=== PATIENT | female | born 1965 | race Caucasian/White ===

== ENCOUNTER 2016-09-10 12:36 | Inpatient (IN) ==
--- NOTE | 2016-09-10 14:27 | History & Physical Report ---
<Josefina Crespo Mitchell - Last Filed: 09/10/16 15:00> History of Present Illness Date: 09/10/16 Chief complaint: Abdominal pain HPI: Nely Ortega is a healthy 51 y/o lady who is directly admitted to [facility] [place], [place] from Dr. Varghese's office for surgical consultation and further evaluation of diverticulitis with perforation. She has chronic back pain, and developed a flare up of pain 1 week ago. She saw the chiropracter on Tuesday, which didn't provide relief. She saw her PCP on Tuesday, who ordered a back x-ray which was negative. By this time, her pain radiated towards her LLQ, and she felt like it was less likely to be musculoskeletal in origin. It was the worst on night, feeling intense pressure and like it was going to explode. She had a follow up appt with Dr. Varghese this morning, who ordered labs and a CT scan. Labs were benign with a nml WBC (9.0) and neg UA but CT showed free intraperitoneal air and a bowel perforation secondary to acute diverticulitis. (CMP: Na 142, BUN 18, Cr 0.91, Glu 111) Last night she had night sweats and chills; no n/v. The only time she had diarrhea was after oral contrast. She's had a poor appetite all week. She had a headache last night but that is better now. She feels weak, fatigued. No dizziness/lightheadedness. No respiratory issues. Otherwise very healthy. She had a colonoscopy in May by Dr. Victoria. Review of Systems All systems: reviewed and no additional remarkable complaints except as stated - Constitutional Constitutional: Present: chills, fatigue, fever(s), headache(s) - EENMT Eyes: Absent: change in vision Mouth/Throat: Absent: sore throat - Cardiovascular Cardiovascular: Absent: chest pain, palpitations Vascular: Absent: pedal edema - Respiratory Respiratory: Absent: cough, dyspnea - Gastrointestinal Gastrointestinal: Present: as per HPI - Musculoskeletal Musculoskeletal: Absent: arthralgias - Integumentary/Breasts Integumentary: Absent: lesions, wounds - Neurological Neurological: Absent: abnormal gait - Psychiatric Psychiatric: Present: anxiety - Hematologic/Lymphatic Hematologic/Lymphatic: Absent: easy bleeding, easy bruising - Allergic/Immunologic Allergic/Immunologic: Absent: seasonal rhinorrhea PFSH Sacroilitis CHRISTIANO, mild Surgical History: Colonoscopy (routine) 05/2016. Partial hysterectomy 2013 ( done d/t anemia) Family History: PGM of [place] at age 66 Thyroid issues on maternal side of the family Both parents alive and well. 2 sisters - healthy. 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 Medications Home Medications Medication Instructions Recorded Confirmed Type Multi-Vitamin Plain [Theragran] 1 tab PO DAILY 09/10/16 09/10/16 History [place]-3/Dha/Epa/Fish Oil [Fish Oil 1,000 mg PO DAILY 09/10/16 09/10/16 History 1,000 mg Softgel] Allergies Allergy/AdvReac Type Severity Reaction Status Date / Time No Known Allergies Allergy Verified 09/10/16 13:54 Exam Vital Signs: Temp Pulse Resp BP Pulse Ox 98.3 F 69 16 140/86 H 98 09/10/16 13:36 09/10/16 13:36 09/10/16 13:36 09/10/16 13:36 09/10/16 13:36 Height: 1.65 m Weight: 49.2 kg Body Mass Index: 18.0 - Constitutional Present: no acute distress, well nourished, well developed, thin - Routine HEENT Exam ENT: Present: mucous membranes dry, oropharynx clear - Routine Neck Exam Present: supple. Absent: lymphadenopathy - Routine Respiratory Exam Present: CTA bilaterally - Routine Cardiovascular Exam Present: S1, S2 - Routine Abdominal Exam Present: normoactive bowel sounds, tenderness (LLQ) - Routine Extremities Exam Present: no edema, pulses intact, normal capillary refill - Routine Skin Exam Present: intact, dry, warm - Routine Neurological Exam Present: alert, oriented X3 - Routine Psychiatric Exam Present: normal affect, normal thought process Assessment and Plan (1) Diverticulitis of colon with perforation Current visit: Yes Status: Acute DVT Prophylaxis: SCD's Resuscitation Status: Full Code Assessment and Plan: Admit under hospitalist service. Consult surgeon - discussed with Dr. Bowser. Start Invanz daily. Outside CT has been taken to radiology dept to be uploaded. Diet: NPO. IVF: NS at 100 mL/hr. Zofran/Dilaudid PRN. Discussed with Dr. Fernandes. Sepsis Assessment - Evaluation Sepsis screening result: No Definite Risk - Focused Exam Vital Signs Temp Pulse Resp BP Pulse Ox 09/10/16 13:36 98.3 F 69 16 140/86 H 98 Hospital Course Summary Disclaimer: The visit summary below is not to be considered part of the above Progress Note. <FernandesLaura laughlin - Last Filed: 09/10/16 18:19> History of Present Illness Date: 09/10/16 [facility] Patient Stated Medical History Sleep Apnea No Gastrointestinal Bleeding Yes Other GI Yes: rupture diverticulim Exam Vital Signs: Temp Pulse Resp BP Pulse Ox 98.3 F 89 16 140/86 H 98 09/10/16 13:36 09/10/16 17:41 09/10/16 13:36 09/10/16 13:36 09/10/16 13:36 Height: 1.65 m Weight: 49.2 kg Assessment and Plan (1) Diverticulitis of colon with perforation Current visit: Yes Status: Acute Assessment and Plan: 09/10/2016-I reviewed this chart, the patient history, and the SMOKING TOBACCO PACKER HAND's/PA's documented findings as above. We discussed and formulated the assessment and plan as above with the additions below.-Dr. Fernandes I saw the patient this evening in preop accompanied by her and son. The patient was transferred from Dr. Varghese's office with abdominal pain and free air seen on CT. Dr. Bowser was consulted and is recommending surgical evaluation and treatment this evening. The patient is in agreement. She states that she has been previously healthy. She began having back pain one week ago and last night pain began in the abdomen. She had hot and cold sweats last night. She denies any other complaints other than some weight loss over the past 1 week. She denies any history of lung disease, heart disease, diabetes or cancer. She denies any headaches or chest pains. She denies any shortness of breath. She denies any fevers, chills or sweats other than her symptoms last evening. She had a colonoscopy several months ago and she states 2 polyps were removed, one of which was precancerous. She has no history of bleeding problems. She underwent hysterectomy a couple of years ago without any difficulties with anesthesia or bleeding. On exam today the patient is well-developed and thin. She is alert and oriented and in mild distress secondary to pain. HEENT reveals sclerae to be anicteric and pupils are equal. Oropharynx is moist. Neck is supple. Chest is clear to auscultation. Cardiovascular reveals a regular rate and rhythm without murmur. Abdomen is soft and tender with hyperactive bowel sounds. Extremities are free of clubbing cyanosis or edema. Skin is warm and dry and without rashes. I agree with plans for surgical treatment for bowel perforation. Continue IV fluids and antibiotics. The patient will likely go to CCU for close observation postoperatively. Dr. Bowser's help is greatly appreciated. Sepsis Assessment - Focused Exam Vital Signs Temp Pulse Resp BP Pulse Ox 09/10/16 17:41 89 09/10/16 13:36 98.3 F 69 16 140/86 H 98 Hospital Course Summary Disclaimer: The visit summary below is not to be considered part of the above Progress Note.
[2016-09-10] MEDS ORDERED: HYDROMORPHONE 2 MG/ML INJECTION IVP PRN (14:33)
[2016-09-10] MEDS ORDERED: NS 1,000 ML IV SCH (14:45)
[2016-09-10] MEDS: SALINE FLUSH 10ml SYRINGE IV PRN (14:59)
[2016-09-10] MEDS: ERTAPENEM 1 G in NS 100 ML IV SCH (15:53)
[2016-09-10] MEDS ORDERED: ROCURONIUM 50 MG/5 ML INJECTION IVP ONE (16:13)
[2016-09-10] MEDS ORDERED: LIDOCAINE 2% (100mg/5mL) PF 5ml vl ONE (16:13)
[2016-09-10] MEDS ORDERED: SUCCINYLCHOLINE 20mg/mL 10mL INJECTION ONE (16:13)
[2016-09-10] MEDS ORDERED: PROPOFOL 20 ML ONE ×2 (16:13→18:19)
--- NOTE | 2016-09-10 16:53 | General Surgery Consult Note ---
Consult date: 09/10/16 Attending Physician: Balbina Santos MD Reason for consult: other (Free air in the abdomen, perforated colon) PFSH Sacroliliitis Surgical History: Colonoscopy (routine) 05/2016, Dr. Beasley. Partial hysterectomy 2013 (done d/t anemia) Family History: both parents alive and well PGM of [place] age 66 - Social History Smoking status: Never smoker Substance use type: does not use Alcohol intake frequency: a few times a month Medications Home Medications Medication Instructions Recorded Confirmed Type Multi-Vitamin Plain [Theragran] 1 tab PO DAILY 09/10/16 09/10/16 History [place]-3/Dha/Epa/Fish Oil [Fish Oil 1,000 mg PO DAILY 09/10/16 09/10/16 History 1,000 mg Softgel] Allergies Allergy/AdvReac Type Severity Reaction Status Date / Time No Known Allergies Allergy Verified 09/10/16 13:54 Review of Systems 10-point ROS: negative except for HPI and the following: - General General: Present: chills, night sweats - Gastrointestinal Gastrointestinal: Present: diarrhea - Musculoskeletal Musculoskeletal: Present: back pain - Neurological Neurological: Present: other (headaches) - Psychiatric Psychiatric: Present: anxiety - Vital Signs Vital Signs: Last Vital Signs Temp 98.3 F 09/10/16 13:36 Pulse 69 09/10/16 13:36 Resp 16 09/10/16 13:36 BP 140/86 H 09/10/16 13:36 Pulse Ox 98 09/10/16 13:36 (1) Diverticulitis of colon with perforation Status: Acute Current visit: Yes Hospital Course Summary Disclaimer: The visit summary below is not to be considered part of the above Progress Note. Sepsis Assessment - Evaluation Sepsis screening result: No Definite Risk - Focused Exam Vital Signs Temp Pulse Resp BP Pulse Ox 09/10/16 13:36 98.3 F 69 16 140/86 H 98 Respiratory exam: Present: CTA bilaterally Cardiovascular exam: Present: S1, S2
--- NOTE | 2016-09-10 16:55 | Anesthesia Preoperative Report ---
Anesthesia Preoperative Record - Date and Time Date: 09/10/16 Preoperative Diagnosis: Free air in the Abdomen Proposed Procedure: Exploratory Laparotomy NPO Since Date: 09/10/16 NPO Since Time: 16:53 Allergies/Adverse Reactions: Allergies Allergy/AdvReac Type Severity Reaction Status Date / Time No Known Allergies Allergy Verified 09/10/16 13:54 - Vital Signs Vital Signs: Temp Pulse Resp BP Pulse Ox 98.3 F 69 16 140/86 H 98 09/10/16 13:36 09/10/16 13:36 09/10/16 13:36 09/10/16 13:36 09/10/16 13:36 Height and Weight: Height 1.65 m Weight 49.2 kg Body Mass Index 18.0 - Medications Inpatient Medications: Current Medications Heparin Sodium (Porcine) (Heparin Sq) 5,000 units SQ O ONE Stop: 09/10/16 17:01 Hydromorphone HCl (Dilaudid) 0.2 - 0.5 mg IVP Q3H PRN PRN Reason: Pain Last Admin: 09/10/16 15:44 Dose: 0.5 mg Sodium Chloride (Normal Saline) 1,000 mls @ 100 mls/hr IV .Q10H ALESSANDRA Last Infusion: 09/10/16 16:23 Dose: 100 mls/hr Ertapenem 1 g/ Sodium Chloride 100 mls @ 200 mls/hr IV DAILY ALESSANDRA Last Infusion: 09/10/16 16:23 Dose: Infused Ondansetron HCl (Zofran) 4 mg IVP Q6H PRN PRN Reason: Nausea &/or vomiting Sodium Chloride (Iv Flush) 10 - 80 ml IV PRN PRN PRN Reason: Flushing Last Admin: 09/10/16 14:59 Dose: 10 ml Home Medications: Home Medications Medication Instructions Recorded Confirmed Type Multi-Vitamin Plain [Theragran] 1 tab PO DAILY 09/10/16 09/10/16 History [place]-3/Dha/Epa/Fish Oil [Fish Oil 1,000 mg PO DAILY 09/10/16 09/10/16 History 1,000 mg Softgel] Is Patient on Beta Sarah?: No Beta Sarah: No - Surgical History Reproductive Surgery/Treatment: Reports: Hysterectomy - Social History Smoking Status: Never smoker Hx Chewing Tobacco Use: No Second Hand Exposure: No Time spent discussing smoking cessation with patient: 3 to 10 minutes Substance Use Type: does not use Alcohol Intake Frequency: a few times a month - Pertinent Findings EKG Rhythm: Normal Sinus Rhythm - Physical Exam Respiratory Exam: Present: lungs clear Cardiovascular Exam: Present: regular rate and rhythm - Airway Assessment Mallampati Score: II TMD: 3 Fingerbreadths Neck Extension: good Overall Assessment: no airway concerns - ASA ASA Score: 2, E - Plan Anesthesia: General Inhalation Gases - Discussion Discussion: Discussed risks/options/alternatives of anesthesia and questions answered. Patient consents. Nursing pain assessment noted. Attestation Statement: Prior to the delivery of any anesthetic medication, I examined the patient, developed the plan, obtained the patient's consent and discussed the risk and benefits of the procedure with the patient/guardian.
[2016-09-10] MEDS ORDERED: HEPARIN SUB-Q 5,000 UNITS/0.5 ML INJECTION SQ ONE (17:00)
--- NOTE | 2016-09-10 17:57 | Anesthesia Preoperative Report ---
Anesthesia Preoperative Record - Date and Time Date: 09/10/16 Preoperative Diagnosis: abdominal pain ruptured colon Proposed Procedure: exploratory laparotomy NPO Since Date: 09/09/16 NPO Since Time: 22:00 Allergies/Adverse Reactions: Allergies Allergy/AdvReac Type Severity Reaction Status Date / Time No Known Allergies Allergy Verified 09/10/16 13:54 - Vital Signs Vital Signs: Temp Pulse Resp BP Pulse Ox 98.3 F 89 16 140/86 H 98 09/10/16 13:36 09/10/16 17:41 09/10/16 13:36 09/10/16 13:36 09/10/16 13:36 Height and Weight: Height 1.65 m Weight 49.2 kg Body Mass Index 18.0 - Medications Inpatient Medications: Current Medications Hydromorphone HCl (Dilaudid) 0.2 - 0.5 mg IVP Q3H PRN PRN Reason: Pain Last Admin: 09/10/16 15:44 Dose: 0.5 mg Sodium Chloride (Normal Saline) 1,000 mls @ 100 mls/hr IV .Q10H ALESSANDRA Last Infusion: 09/10/16 17:16 Dose: 0 mls/hr Ertapenem 1 g/ Sodium Chloride 100 mls @ 200 mls/hr IV DAILY ALESSANDRA Last Infusion: 09/10/16 16:23 Dose: Infused Ondansetron HCl (Zofran) 4 mg IVP Q6H PRN PRN Reason: Nausea &/or vomiting Sodium Chloride (Iv Flush) 10 - 80 ml IV PRN PRN PRN Reason: Flushing Last Admin: 09/10/16 14:59 Dose: 10 ml Home Medications: Home Medications Medication Instructions Recorded Confirmed Type Multi-Vitamin Plain [Theragran] 1 tab PO DAILY 09/10/16 09/10/16 History [place]-3/Dha/Epa/Fish Oil [Fish Oil 1,000 mg PO DAILY 09/10/16 09/10/16 History 1,000 mg Softgel] Is Patient on Beta Sarah?: No Beta Sarah: No - Medical History Gastrointestional: Reports: Gastrointestinal Bleeding, Other (rupture diverticulim) - Surgical History Reproductive Surgery/Treatment: Reports: Hysterectomy - Social History Smoking Status: Never smoker Substance Use Type: does not use Alcohol Intake Frequency: a few times a month - Pertinent Findings EKG Rhythm: Normal Sinus Rhythm - Physical Exam Respiratory Exam: Present: lungs clear Cardiovascular Exam: Present: regular rate and rhythm, no murmur - Airway Assessment Mallampati Score: I TMD: 3 Fingerbreadths Neck Extension: good Teeth: chipped teeth/crowns Overall Assessment: no airway concerns - ASA ASA Score: 2, E - Plan Anesthesia: General Inhalation Gases - Discussion Discussion: Discussed risks/options/alternatives of anesthesia and questions answered. Patient consents. Nursing pain assessment noted. Present for Discussion: spouse, family member Attestation Statement: Prior to the delivery of any anesthetic medication, I examined the patient, developed the plan, obtained the patient's consent and discussed the risk and benefits of the procedure with the patient/guardian.
[2016-09-10] MEDS: LR 1,000 ML IV SCH ×4 (18:04→20:27)
[2016-09-10] MEDS ORDERED: FentaNYL 250 MCG/5 ML INJECTION ONE (18:07)
--- NOTE | 2016-09-10 18:09 | Consultation ---
DATE OF CONSULTATION 09/10/2016 FINDINGS Mrs. Ortega is a 51-year-old female whom I was asked to see today as a result of her history and physical findings of abdominal pain in conjunction with a probable colonic perforation noted on CT scan. Upon questioning Mrs. Ortega, she informs me that over the last two to three years she has been experiencing intermittent bouts of pain. She states that most of the pain seems to occur initially within her lower back. Patient states that she had a similar pain begin about a week ago. Patient states that initially she had gone to the chiropractor and had her "back manipulated." The pain continued to become more severe in nature. She did begin to notice the pain was now present within her left lower quadrant and her lower abdomen. Patient states that she presented to her primary care physician in [place], [place] and subsequently underwent further evaluation including a CT scan. CT scan revealed evidence for perforation. Patient subsequently has been sent to our facility for further care. Patient states the pain is constant in nature. Pain is made worse upon palpation. Pain is made worse with movement. She states she has had a component of some fever and chills in association with the pain. Describes the pain as quite severe in nature. PAST MEDICAL HISTORY, PAST SURGICAL HISTORY, MEDICATIONS, ALLERGIES, SOCIAL HISTORY, FAMILY HISTORY, REVIEW OF SYSTEMS Performed by my nurse practitioner, Sky Morales APRN PHYSICAL EXAMINATION GENERAL: Mrs. Ortega is a 51-year-old female who does appear to be uncomfortable but does not appear to be in acute distress. VITAL SIGNS: Temperature 98.3, pulse 69, respirations 16, blood pressure 140/86 , SAO2 98% on room air. HEENT: Normocephalic. Pupils are equally round and react to light and accommodation. CHEST: Clear to auscultation bilaterally. HEART: Regular rate and rhythm. Normal S1 and S2 without gallops, murmurs or clicks. ABDOMEN: Surprisingly, the patient did not have geovany peritoneal signs. I was able to palpate within her right lower quadrant and right upper quadrant and to some extent within her left upper quadrant without resulting in severe pain. Patient did grimace, however, during the process of the examination but stated that she was not in severe pain. However, palpation with the left lower quadrant did elicit severe pain to the patient. Patient was also found be exquisitely tender within the suprapubic region. She did have a component of both voluntary and involuntary guarding in these locations. I did not appreciate any evidence for hepatomegaly or other abnormal masses. EXTREMITIES: Without clubbing, cyanosis, or edema. NEURO: Cranial nerves II-XII grossly intact. Patient is without focal motor or sensory deficits. LABORATORY/RADIOGRAPHIC EVALUATION I did review her lab work from [place], [place]. Her white count was not markedly elevated at around 9000. I did review the actual CT scan personally as well as with our radiologist. CT scan was more impressive than her physical findings and she was found to have fair amount of free air up by the liver around the spleen and stomach. She was found to have a large area of air outside of the rectum and colon within the presacral region. There did appear to be some fluid associated with this area. One could see some inflammatory changes within the para sigmoid region. Additionally, one could see several diverticula present. ASSESSMENT 51-year-old female with probable perforated sigmoid diverticulitis. PLAN Exploratory laparotomy, sigmoid resection, possible coloproctostomy, possible creation of end colostomy with Ari's pouch, possible coloproctostomy in conjunction with temporary diverting loop ileostomy. I informed the patient that her physical findings are not nearly as impressive as her radiographic findings. I did inform the patient, however, that I did feel that she was fairly stoic and that her pain was more severe than she was "letting on." I informed the patient that I felt we had a few options available to us. One option is nonoperative and to place her on IV antibiotics and follow her carefully with serial abdominal examinations. The other option, of course, is to proceed with surgical intervention. I am a little reluctant to proceed with nonoperative intervention given her CT scan findings of fairly significant free air throughout the peritoneal cavity as well as a fair amount of air surrounding the perirectal region within the presacral space in conjunction with some fluid suggesting a developing abscess. I informed the patient that I felt that there was a risk that she could develop a pelvic sepsis as a result of the extent of her perforation noted on CT scan. I informed the patient that my recommendation would be to proceed with surgical intervention given her CT scan findings as discussed above. I did discuss in detail with the patient and her what surgical intervention would entail, and the potential for creation of a colostomy or loop ileostomy. I discussed potential risks which included but were not inclusive of bleeding and infection. The patient understood and agreed to proceed with surgical intervention at this time. JAJA
[2016-09-10] MEDS ORDERED: SEVOFLURANE 250ml LIQUID IH ONE (18:20)
[2016-09-10] MEDS ORDERED: ONDANSETRON 4 MG/2 ML INJECTION ONE (19:40)
[2016-09-10] MEDS ORDERED: SUGAMMADEX 200mg/2ml INJECTION IVP ONE (19:40)
[2016-09-10] MEDS ORDERED: HYDROMORPHONE 2 MG/ML INJECTION ONE (19:42)
--- NOTE | 2016-09-10 20:14 | General Surgery Procedure Note ---
Date of Procedure: 09/10/16 Surgeon: [employer] Supervisor: Sky Morales APRN Postoperative Diagnosis: Ruptured diverticulitis Procedure: Exploratory laparotomy with sigmoid resection and primary anastomosis Estimated Blood Loss: See Anesthesia Record.
[2016-09-10] MEDS: HYDROMORPHONE 2 MG/ML INJECTION IVP PRN ×2 (20:19→20:32)
[2016-09-10] MEDS ORDERED: KETOROLAC 15 MG/ML INJECTION IVP PRN (22:07)
[2016-09-10] MEDS ORDERED: MORPHINE SULFATE 4 MG SYRINGE IVP PRN (22:07)
[2016-09-10] MEDS: HYDROMORPHONE PCA 30mg/30ml VIAL IV PRN (22:28)
[2016-09-10] MEDS: D5-1/2NS with KCL 20mEq 1,000 ML IV SCH (23:31)
[2016-09-11] MEDS: D5-1/2NS with KCL 20mEq 1,000 ML IV SCH ×2 (08:27→19:17)
[2016-09-11] MEDS: ERTAPENEM 1 G in NS 100 ML IV SCH (08:27)
[2016-09-11] MEDS: ONDANSETRON 4 MG/2 ML INJECTION IVP PRN ×2 (08:29→19:16)
--- NOTE | 2016-09-11 09:07 | Progress Note ---
Subjective: Patient states she feels groggy and has midabdominal pain. She was also noted to have weakness in the left leg when the nurse got her up out of bed and into a chair this morning. She has some chronic intermittent low back pain and started having low back pain a week ago. She saw her chiropractor on Tuesday. She denies any pain in either leg. She has mild numbness in the medial left thigh and left calf. She has some low back pain but it is not severe, however she is on IV narcotics. The patient underwent general anesthesia last night for perforated bowel. Surgery reportedly went well. She has some mild nausea. She denies shortness of breath. She has not had any flatus yet. She denies any chest pain or headache. She denies any visual difficulties. She has an NG tube in place. Objective Vital signs: Temp Pulse Resp BP Pulse Ox 98.8 F 65 32 H 152/64 H 99 09/11/16 04:00 09/11/16 04:00 09/11/16 06:00 09/11/16 04:00 09/11/16 04:00 Weight: 51.1 kg Comments: The patient is on room air. She is afebrile. Blood pressure is 152/64 on last recording. O2 sat 99% on room air. Heart rate in the 50s to 60s. GEN-mildly drowsy, sitting up in a chair, no acute distress, oriented, she is a good historian HEENT-sclera anicteric, pupils are pinpoint, extraocular movements are intact, oropharynx is moist NECK-supple CV-regular rate and rhythm without murmur CHEST-clear to auscultation bilaterally ABD-soft, tender throughout, hypoactive bowel sounds -Vargas in place with mildly dark urine EXT-no edema. The patient has equal posterior tab and dorsalis pedis pulses. She has good/equal capillary refill in both feet. NEURO-cranial nerves II through XII are grossly intact, motor strength of the upper extremities is equal and normal. The patient has significant decreased strength with flexion at the hip on the left and is not able to extend the left leg at the knee. Reflexes absent at the left knee. Reflexes normal at the left ankle. Motor strength and reflexes are normal in the right leg. The patient has decreased but not absent sensation in the left medial thigh and left medial calf. SKIN-warm and dry and without rashes - Constitutional Present: no acute distress, well nourished, well developed, thin Results - Labs CBC & Chem 7: 09/11/16 08:26 09/11/16 08:26 Assessment and Plan (1) Diverticulitis of colon with perforation Current visit: Yes Status: Acute Assessment and Plan: 09/11/2016 Impression/plan Diverticulitis with colonic perforation-postop day #1-continue antibiotics, postop care per Dr. Bowser Ileus-continue to monitor, NG tube Mild leukocytosis-no signs of sepsis, continue ertapenem Borderline hypotension-monitor closely, may need fluid resuscitation Intermittent chronic low back pain-sleep diagnosed with sacroiliitis New onset weakness left leg with decreased flexion at the hip and absent extension at the left knee. Absent reflex at the left knee. Decreased sensation left inner thigh and left calf. Discussed with Dr. Bowser and nurse dining server. The patient did have general anesthesia. She was in the lithotomy position during surgery which could possibly affect the nurse. I also called and spoke with neurologist Dr. Boone Ewing. I discussed with him the patient's surgery last night and new onset of symptoms found today. He was concerned for possible retroperitoneal hematoma and recommended a CT abdomen and pelvis. If CT abdomen and pelvis did not show a cause for her neurologic symptoms he recommended an MRI of the lumbar spine. I discussed these recommendations with Dr. Bowser and he was in agreement. He recommended extending the CT down to the mid thigh to look at the iliac and femoral vessels. I did speak with the radiology department and they will make sure the CT extends to the mid thigh. Prior to discussing with consultants, I did talk with the patient's daughter who is a nurse, on the phone. I did also try to call the patient's and give him an update but there was no answer. I did leave a message requesting that he call back. Greater than 45 minutes of critical care time spent seeing and evaluating the patient, talking with consultants and determining care plan Sepsis Assessment - Evaluation Sepsis screening result: No Definite Risk - Focused Exam Vital Signs Temp Pulse Resp BP Pulse Ox 09/11/16 06:00 32 H 09/11/16 04:00 98.8 F 65 19 152/64 H 99 09/11/16 03:17 20 100 09/11/16 02:00 24 09/11/16 00:00 98.3 F 74 24 108/56 100 09/10/16 22:00 22 Respiratory exam: Present: CTA bilaterally Cardiovascular exam: Present: S1, S2 Capillary refill: < 2-3 Seconds Hospital Course Summary Disclaimer: The visit summary below is not to be considered part of the above Progress Note. 09/10/2016-I reviewed this chart, the patient history, and the EQUIPMENT HIRE MANAGER's/PA's documented findings as above. We discussed and formulated the assessment and plan as above with the additions below.-Dr. Fernandes I saw the patient this evening in preop accompanied by her and son. The patient was transferred from Dr. Varghese's office with abdominal pain and free air seen on CT. Dr. Bowser was consulted and is recommending surgical evaluation and treatment this evening. The patient is in agreement. She states that she has been previously healthy. She began having back pain one week ago and last night pain began in the abdomen. She had hot and cold sweats last night. She denies any other complaints other than some weight loss over the past 1 week. She denies any history of lung disease, heart disease, diabetes or cancer. She denies any headaches or chest pains. She denies any shortness of breath. She denies any fevers, chills or sweats other than her symptoms last evening. She had a colonoscopy several months ago and she states 2 polyps were removed, one of which was precancerous. She has no history of bleeding problems. She underwent hysterectomy a couple of years ago without any difficulties with anesthesia or bleeding. On exam today the patient is well-developed and thin. She is alert and oriented and in mild distress secondary to pain. HEENT reveals sclerae to be anicteric and pupils are equal. Oropharynx is moist. Neck is supple. Chest is clear to auscultation. Cardiovascular reveals a regular rate and rhythm without murmur. Abdomen is soft and tender with hyperactive bowel sounds. Extremities are free of clubbing cyanosis or edema. Skin is warm and dry and without rashes. I agree with plans for surgical treatment for bowel perforation. Continue IV fluids and antibiotics. The patient will likely go to CCU for close observation postoperatively. Dr. Bowser's help is greatly appreciated.
[2016-09-11] MEDS ORDERED: SALINE FLUSH 10ml SYRINGE ONE ×2 (09:53→13:17)
[2016-09-11] MEDS ORDERED: NS 100 ML ONE (09:53)
[2016-09-11] MEDS ORDERED: IOHEXOL 300mg/ml 75ml INJECTION ONE (09:53)
--- NOTE | 2016-09-11 09:54 | Anesthesia Postoperative Note ---
- Date and Time Date: 09/11/16 Time: 09:47 - Status Patient Participated in Evaluation: Patient Participated in Person Vital Signs: Temp Pulse Resp BP Pulse Ox 98.6 F 54 L 14 88/52 99 09/11/16 09:12 09/11/16 09:12 09/11/16 09:12 09/11/16 08:00 09/11/16 09:12 Respiratory Function: Airway Patent Cardiovascular Function: Regular Pulse EKG Rhythm: Normal Sinus Rhythm Mental Status: Alert and Oriented Pain Intensity: 3 Hydration: IV Infusing Complications During Recover: None Apparent Post Anesthesia Care Notes: This AM patient complains of weak left lower leg strength. Physical exam - patient shows limited left lower leg extension and requires assistance during ambulation. Dr. Fernandes also present and speaking with Dr. Nelson on the phone. No complications related to anesthesia were observed. Pain rated at 3/ 10. Plans this AM for CT of abdomen according to Dr Fernandes. - Follow-Up Instructions Instructions: Per Surgeon
[2016-09-11] MEDS: ENOXAPARIN 40 MG/0.4 ML INJECTION SQ SCH (10:32)
[2016-09-11] MEDS: PANTOPRAZOLE 40 MG INJECTION IVP SCH (11:02)
[2016-09-11] MEDS ORDERED: GADOBUTROL 10mMol/10ml INJECTION IVP ONE (13:17)
[2016-09-11] MEDS ORDERED: KETOROLAC 15 MG/ML INJECTION IVP ONE (16:10)
[2016-09-12] MEDS: D5-1/2NS with KCL 20mEq 1,000 ML IV SCH ×5 (00:50→22:45)
[2016-09-12] MEDS: PANTOPRAZOLE 40 MG INJECTION IVP SCH (08:59)
[2016-09-12] MEDS: SALINE FLUSH 10ml SYRINGE IV PRN (09:00)
[2016-09-12] MEDS: ERTAPENEM 1 G in NS 100 ML IV SCH (09:42)
--- NOTE | 2016-09-12 10:26 | CT Scan Report ---
Indication: left leg weakness, surgery for ruptured divertic yesterday PROCEDURE: CT abdomen pelvis w con: Encounter: Initial Comparison: Outside CT abdomen and pelvis dated September 10, 2016 Technique: Axial CT images were performed through the abdomen and pelvis after the administration of intravenous contrast. Coronal and sagittal two-dimensional reformats. Automated Exposure Control and Iterative Reconstruction dose reducing techniques were utilized. Contrast: Omnipaque 300 74 mL Findings: The lung bases show trace effusions. Interval change in configuration of free intraperitoneal air. New periportal edema, likely related to aggressive intravenous hydration. Right hepatic cysts. Vicarious excretion of contrast by the gallbladder. Nasogastric tube extending into the pylorus of the stomach. The spleen is unremarkable. The pancreas is grossly normal. The adrenal glands and kidneys are within normal limits. No abdominal or pelvic adenopathy. Bladder is decompressed with a Vargas catheter. There is contrast material to the level of the rectum. There is presacral induration with fluid and gas. The prior large focal. Colonic collection of fluid and gas near the sigmoid is no longer seen. There is free air tracking around well left paracolic gutter. Small bowel is nondilated. Postoperative change in the sigmoid colon. No obvious free intraperitoneal or retroperitoneal hemorrhage appreciated. Impression: Interval surgery with change in configuration of free intraperitoneal air. No evidence of acute obstruction or contrast extravasation from the colon. No obvious free intraperitoneal or retroperitoneal hemorrhage. There is a preliminary report by [facility]. .
--- NOTE | 2016-09-12 10:27 | Magnetic Resonance Report ---
Indication: left leg weakness and numbness post laparotomy yesterday PROCEDURE: MR lumbar spine wo con: Encounter: Initial Comparison: None Technique: Multiplanar multisequence MR imaging of the lumbar spine was performed without contrast. Findings: No cord compression. Mild scoliosis. No acute fracture identified. No gross central canal or neural foraminal stenosis. Small disk extrusion at L4-L5. Mild disk bulging at L2-L3 and L3-L4. Motion artifact limits the quality of the exam. Impression: No acute fracture. No obvious cord or nerve root compression. There is a preliminary report by [facility]. .
--- NOTE | 2016-09-12 11:21 | Progress Note ---
Subjective: The patient is seen in her room this morning sitting up in a chair. She and her nurse both state that she was able to walk a little bit better today than yesterday. She has a little bit more strength with extension at the knee on the left leg today than she did yesterday. She has a little bit of improved strength with flexion at the left hip compared to yesterday. She denies any chest pains or palpitations. She denies any shortness of breath. She denies lightheadedness or nausea. She tolerated some juice and Jell-O today. Abdominal pain is controlled. She has had good urine output overnight. Objective Vital signs: Temp Pulse Resp BP Pulse Ox 98.9 F 61 9 L 122/61 94 09/12/16 08:00 09/12/16 08:00 09/12/16 10:00 09/12/16 08:00 09/12/16 08:00 Weight: 52.8 kg Comments: Patient is afebrile and vital signs are stable. She is on room air. GEN-alert, oriented, no acute distress HEENT-sclera anicteric, oropharynx is moist NECK-supple CV-regular rate and rhythm without murmur CHEST-clear to auscultation bilaterally ABD-soft, mild tenderness, hypoactive bowel sounds -Vargas in place with normal colored urine EXT-no edema NEURO-the patient still has absent reflex at the knee on the left. She continues to have decreased sensation in the left leg mostly in the medial thigh and medial calf area. Strength is a little better with extension at the left knee and flexion at the left hip compared to yesterday. She still has good strength with flexion and extension at the feet/ankles. SKIN-warm and dry and without rashes - Constitutional Present: no acute distress, well nourished, well developed, thin Results - Labs CBC & Chem 7: 09/12/16 04:10 09/12/16 04:10 - Imaging and Cardiology CT scan - abdomen Status: image reviewed by me Additional comments: CT abdomen with and without IV contrast Findings: The lung bases show trace effusions. Interval change in configuration of free intraperitoneal air. New periportal edema, likely related to aggressive intravenous hydration. Right hepatic cysts. Vicarious excretion of contrast by the gallbladder. Nasogastric tube extending into the pylorus of the stomach. The spleen is unremarkable. The pancreas is grossly normal. The adrenal glands and kidneys are within normal limits. No abdominal or pelvic adenopathy. Bladder is decompressed with a Vargas catheter. There is contrast material to the level of the rectum. There is presacral induration with fluid and gas. The prior large focal. Colonic collection of fluid and gas near the sigmoid is no longer seen. There is free air tracking around well left paracolic gutter. Small bowel is nondilated. Postoperative change in the sigmoid colon. No obvious free intraperitoneal or retroperitoneal hemorrhage appreciated. Impression: Interval surgery with change in configuration of free intraperitoneal air. No evidence of acute obstruction or contrast extravasation from the colon. No obvious free intraperitoneal or retroperitoneal hemorrhage. MRI lumbar spine Findings: No cord compression. Mild scoliosis. No acute fracture identified. No gross central canal or neural foraminal stenosis. Small disk extrusion at L4-L5. Mild disk bulging at L2-L3 and L3-L4. Motion artifact limits the quality of the exam. Impression: No acute fracture. No obvious cord or nerve root compression. Assessment and Plan (1) Diverticulitis of colon with perforation Current visit: Yes Status: Acute Assessment and Plan: 09/12/2016 Impression/plan Diverticulitis with colonic perforation-postop day #2-continue antibiotics, postop care per Dr. Bowser. Agree with transfer to floor today Mild leukocytosis-resolved -no signs of sepsis, continue ertapenem Borderline hypotension-resolved Mild anemia Intermittent chronic low back pain-sleep diagnosed with sacroiliitis New onset weakness left leg with decreased flexion at the hip and absent extension at the left knee. Absent reflex at the left knee. 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 Will likely need neurology follow-up and physical therapy. CT abdomen with contrast and MRI lumbar spine as above did not show any cause for her leg weakness and numbness. Agree with transfer to [facility], [facility]. Sepsis Assessment - Evaluation Sepsis screening result: No Definite Risk - Focused Exam Vital Signs Temp Pulse Resp BP Pulse Ox 09/12/16 10:00 9 L 09/12/16 08:00 98.9 F 61 18 122/61 94 09/12/16 04:00 98.7 F 65 16 107/63 99 09/12/16 00:00 99.1 F 62 16 105/69 95 Respiratory exam: Present: CTA bilaterally Cardiovascular exam: Present: S1, S2 Capillary refill: < 2-3 Seconds Hospital Course Summary Disclaimer: The visit summary below is not to be considered part of the above Progress Note. 09/11/2016 Impression/plan Diverticulitis with colonic perforation-postop day #1-continue antibiotics, postop care per Dr. Bowser Ileus-continue to monitor, NG tube Mild leukocytosis-no signs of sepsis, continue ertapenem Borderline hypotension-monitor closely, may need fluid resuscitation Intermittent chronic low back pain-sleep diagnosed with sacroiliitis New onset weakness left leg with decreased flexion at the hip and absent extension at the left knee. Absent reflex at the left knee. Decreased sensation left inner thigh and left calf. Discussed with Dr. Bowser and nurse extension associate. The patient did have general anesthesia. She was in the lithotomy position during surgery which could possibly affect the nurse. I also called and spoke with neurologist Dr. Boone Ewing. I discussed with him the patient's surgery last night and new onset of symptoms found today. He was concerned for possible retroperitoneal hematoma and recommended a CT abdomen and pelvis. If CT abdomen and pelvis did not show a cause for her neurologic symptoms he recommended an MRI of the lumbar spine. I discussed these recommendations with Dr. Bowser and he was in agreement. He recommended extending the CT down to the mid thigh to look at the iliac and femoral vessels. I did speak with the radiology department and they will make sure the CT extends to the mid thigh. Prior to discussing with consultants, I did talk with the patient's daughter who is a nurse, on the phone. I did also try to call the patient's and give him an update but there was no answer. I did leave a message requesting that he call back. Greater than 45 minutes of critical care time spent seeing and evaluating the patient, talking with consultants and determining care plan
--- NOTE | 2016-09-12 13:41 | Progress Note ---
DATE OF SERVICE 09/12/2016 FINDINGS Mrs. Ortega is in good spirits today. States that her leg is stronger today. She is not having as much weakness. Denies any element of nausea or vomiting. PHYSICAL EXAM VITAL SIGNS: Afebrile, normotensive. Please refer to EMR. CHEST: Clear to auscultation bilaterally. HEART: Regular rate and rhythm. Normal S1 and S2 without gallops, murmurs or clicks. ABDOMEN: Abdomen soft. Minimal incisional tenderness. No evidence for guarding or rebound. EXTREMITIES: Attention was focused to her left lower extremity. The patient did have increased motor strength to her left lower extremity today. She was able to lift her leg off the bed as well as slowly extend her knee which she was not able to perform yesterday. LABORATORY/RADIOGRAPHIC EVALUATION The patient had a CBC today that was unremarkable. Hemoglobin is 10.9. White count is 6.2. CMP obtained and found to be without marked abnormalities. ASSESSMENT 51-year-old female status post exploratory laparotomy with sigmoid resection and coloproctostomy secondary to probable ruptured diverticulitis. Patient currently doing well. PLAN Transfer to floor. DC Vargas. Increase to full liquid diet. Decrease IV fluids to 100 mL. Overall pleased with the patient's progress. [facility]
--- NOTE | 2016-09-12 16:59 | Operative Note ---
DATE OF SERVICE 09/10/2016 SURGEON Mynor Bowser MD ANTIQUE REFINISHER Sky Morales APRN PREOPERATIVE DIAGNOSIS Probable perforated sigmoid diverticulitis. POSTOPERATIVE DIAGNOSIS Probable perforated sigmoid diverticulosis. PROCEDURE Exploratory laparotomy, sigmoid resection, coloproctostomy. ANESTHESIA General endotracheal. EBL/FLUIDS Please see chart. BRIEF HISTORY/INDICATIONS Nely is a 51-year-old female who has had about a one-week history of severe back and lower abdominal pain. Pain has progressively become more severe in nature. The patient presented to her primary care physician who earlier today had obtained a CT scan of her abdomen and pelvis. CT scan did reveal evidence for perforated viscus. The patient was subsequently sent to our facility for further care. Upon examination the patient was found to be exquisitely tender within her suprapubic region and the left lower quadrant. The patient was fairly stoic but it did appear that she was in a considerable amount of discomfort. CT scan was obtained that did reveal a fair amount of free air surrounding the liver, stomach, spleen. Additionally, there was a large " pocket of air" which contained some fluid within the presacral region. As a result of her physical findings and her radiographic findings it was recommended that she undergo surgical intervention. For completeness please refer to notes included in the patient's chart. FINDINGS Upon laparotomy fortunately the patient was not found to have gross fecal peritonitis. She was found to have what appeared to be an abscess cavity contained within the mesentery to the distal sigmoid colon/upper rectum region. This abscess cavity was not opened and was resected en bloc with the sigmoid colon and upper rectum. The colon at this location was significantly thickened and inflamed. There was a phlegmonous-like reaction involving the distal sigmoid colon. Small bowel was run from ligament of Treitz to terminal ileum. No visible or palpable abnormalities were noted. Liver edge was smooth without nodularities with the exception there was one nodule along the lateral aspect of the right lobe of the liver. Upon visualization there was a bluish-like area upon Tabatha's capsule corresponding with this palpable abnormality. This likely represented an underlying cystic structure or perhaps hemangioma. It did not appear suspicious in nature from a neoplastic process. Gallbladder was somewhat distended but was without palpable stones and without visible abnormalities to suggest acute cholecystitis. Stomach was without palpable abnormalities. Colon was palpated throughout and was normal with the exception as stated above. As stated above, a sigmoid resection and coloproctostomy were completed without incident. NARRATIVE OF PROCEDURE After informed consent was obtained the patient was brought to the operative suite and placed on the table in supine fashion. The abdomen was then prepped and draped in sterile fashion. Formal timeout was then completed. A standard midline incision was then made from just above the pubic symphysis up to and into the epigastric region. Underlying subcutaneous tissues, fascia, and peritoneum was opened to the extent of the incision. The abdominal cavity was explored with findings as noted above. Next, attention was directed towards performing sigmoidectomy and coloproctostomy. Patient was hemodynamically stable. There was no evidence for gross contamination within the peritoneal cavity. There was indeed a perforation but it did appear to be contained within the mesentery. As a result of the above indications, I elected to proceed with primary anastomosis. First, a point involving the mid sigmoid colon was ascertained. This area was perhaps 10-15 cm proximal to the area of marked induration involving the distal sigmoid colon and upper rectum. Small window was then created within the mesentery at this location. DARA 75 stapler was placed across the sigmoid colon at this location and fired. Next, the mesentery was then sequentially divided down towards the sacral promontory. White line of Toldt was then incised along the left pericolic gutter. The sigmoid colon was then reflected medially. Left ureter was identified and preserved in its entirety as the colon was being reflected medially. The patient was quite thin and one could also see the right ureter beneath the peritoneum as it coursed up and overlying the iliac vessels. Next, the presacral space was then entered just below the sacral promontory and the sigmoid colon and the mesorectum at this point in time was then dissected within the presacral space. Mesorectum out laterally was then incised. Next, dissection was carried down about 4-5 cm below this phlegmonous process involving the upper rectum and sigmoid colon. A point involving the mid rectum was then obtained. Small window was then created within the mesorectum adjacent to the rectum at this location. The remaining mesorectum was then sequentially divided between right angle clamps and ligated with a combination of 3-0 and 0-Vicryl ties. Contour stapler was then placed across the mid to distal rectum and fired. Next, the rectum, mesorectum and mesocolon to the distal sigmoid colon was then resected and passed off the table as a surgical specimen. As stated above, this phlegmonous process with an associated apparent abscess was present within the midportion of the specimen. Attention was directed towards completion of the primary anastomosis. The proximal staple line could be brought forth and laid adjacent to the rectum without any tension. Allis clamps were then placed upon the proximal staple line. Proximal staple line was then transected with curved House scissors. Colon did bleed following transection, indicative of adequate blood supply. Three Allis clamps were then placed upon the transected end of the colon in a triangulated fashion. A 28-mm sizer was able to be advanced in the colon without difficulty. A 29-mm EEA stapler was then obtained. Anvil portion of stapler was then placed in the transected end of the colon. A pursestring suture was then placed circumferentially around the transected end of the colon and tied securely, resulting in nice imbrication of the colonic mucosa against the anvil portion. Next, I had my medical staff assistant perform anal dilatation and then advance the EEA stapler through the anal verge and advance the stapler adjacent to the staple line involving the distal/mid rectum. Trocar portion of the stapler was then advanced out farrell under direct visualization until it had pierced the rectum just above the staple line. Anvil portion of the stapler was attached to the trocar portion of the stapler and tightened to the appropriate tension and fired. Stapler was then loosened and removed. Two complete doughnuts were present within the stapler. Saline was then placed within the pelvis until it covered the anastomosis. I then had my medical staff assistant insert a colonoscope into the anus and insufflate the rectum and sigmoid colon until was fairly taut with air. I did grasp the remaining sigmoid colon just about 15 cm above the level of the anastomosis. With the colon and rectum fairly taut with air, no bubbles were seen coming forth through the saline within the pelvis. Air was then suctioned and the colonoscope was then removed. Attention was directed towards closure. Prior areas of dissection were inspected and found to be hemostatic in nature. Left ureter again was identified and remained to be intact in its entirety. Attention was then directed towards closure. New gowns, gloves and instruments were obtained. Fascia was then closed in a running fashion with #1 PDS. Skin was then closed with madina. Patient is in the process of awakening from her anesthetic and will be sent back to recovery room once deemed in stable condition. Additionally, it should be noted that Sky Morales APRN, was present throughout the entire case and played a pivotal role in providing assistance and exposure during the course of the procedure. JAJA
[2016-09-13] MEDS: HYDROCODONE/APAP 5mg/325mg TABLET PO PRN (01:42)
--- NOTE | 2016-09-13 07:00 | Operative Note ---
FINDINGS Mrs. Lopez's, this morning, surprisingly, main complaint was in regards to weakness involving her left lower extremity. She did have some incisional tenderness as one would expect. VITALS: Afebrile. Normotensive. Please refer to MRLitzy Patient slightly hypotensive earlier this morning. CHEST: Clear to auscultation bilaterally. HEART: Regular rate and rhythm. Normal S1 and S2 without gallops, murmurs or clicks. ABDOMEN: Palpation of the abdomen reveals it to be soft and nontender. I do not appreciate any evidence for hepatosplenomegaly or abnormal masses. EXTREMITIES/NEURO: Attention was focused to the area of her concern involving the left lower extremity. Patient has a very strong palpable femoral pulse. It does appear from a sensory standpoint that she has good sensation involving her thigh region. She does have some decreased sensation involving the medial aspect of her calf. She does have good plantarflexion and dorsiflexion of her left foot. The patient does, however, have marked weakness of extension at the knee. LABORATORY/RADIOGRAPH EVALUATION The patient had a CBC this morning and her white count was 11.1. Hemoglobin is overall stable at 11.7. BMP obtained and found be without marked abnormalities. ASSESSMENT 51-year-old female status post exploratory laparotomy with sigmoid resection and coloproctostomy secondary to probable ruptured sigmoid diverticulitis. PLAN I am somewhat uncertain in regards to the underlying etiology for her weakness involving her left lower extremity. This is concerning. We did make sure that when she was placed in lithotomy position that her legs were in the appropriate position and well padded. Additionally, when I placed the Codman retractor, I made sure that the blades that were utilized were fairly short and not pressing on her iliac vessels. I appreciate hospitalists' help in further evaluation in regards to workup of the etiology for her left lower extremity weakness. From a surgical standpoint, I believe the patient is doing quite well. I did see the CT scan report from earlier today. I do believe that the description of the findings are consistent with her surgical history, i.e. free air and changes noted within the presacral space. Will go ahead and discontinue NG today. Will begin the patient on some clear liquids. Continue to follow the patient closely. It is my intuition that her neurologic deficit involving the left lower extremity will improve over the next several days. Will continue to follow closely and proceed with further evaluation. JAJA
[2016-09-13] MEDS: ENOXAPARIN 40 MG/0.4 ML INJECTION SQ SCH (08:53)
[2016-09-13] MEDS: D5-1/2NS with KCL 20mEq 1,000 ML IV SCH ×2 (08:53→19:57)
[2016-09-13] MEDS: ERTAPENEM 1 G in NS 100 ML IV SCH (08:55)
[2016-09-13] MEDS: PANTOPRAZOLE 40 MG INJECTION IVP SCH (08:55)
--- NOTE | 2016-09-13 11:58 | Consultation ---
DATE OF CONSULTATION 09/13/[address] Fernandes CHIEF COMPLAINT Left leg weakness. HISTORY OF PRESENT ILLNESS The patient is a 51-year-old female with no significant past medical history. The patient was recently admitted to [facility] for a bowel surgery due to perforated bowel problem. The patient has been complaining of left leg weakness. This has affected her ability to flex her hip and extend her leg mainly. She also complains of numbness and tingling sensation on the medial aspect of her thigh and leg. Her symptoms started after the surgery. She has had some mild improvement so far. The patient had a CT of the abdomen and pelvis to rule out a retroperitoneal bleed. This was negative. She also had an MRI of the lumbar spine that showed no significant abnormalities. The patient denies having any significant pain in addition to the weakness. She has had no more other neurological problem on the right lower extremity or upper extremities bilaterally. PHYSICAL EXAMINATION The patient was awake, alert, oriented x 3. Pupils were round, reactive and equal. Extraocular muscles were intact. Visual huffman were full. Speech was normal. Motor examination in the upper extremities was 5/5 bilaterally. In the right lower extremity it was 5/5. In the left lower extremity it was 4-/5 for hip flexion, 3-/5 for knee extension, 4+ to 5-/5 for ankle dorsiflexion and ankle plantar flexion, 4+/5 for knee flexion. Her deep tendon reflexes were 2+ except at the left patellar reflex. Sensory examination was affected for light touch and pinprick in the medial aspect of the thigh and leg on the left. Coordination was normal for [id number]. The patient's gait is affected by her left lower extremity weakness. ASSESSMENT Acute-onset left femoral neuropathy. This can be associated with nerve entrapment during surgery. Other consideration includes a left upper trunk lumbosacral plexopathy which is less likely in this clinical setting. PLAN 1. Continue physical and occupational therapy and consider rehabilitation admission. 2. Consider starting patient on steroid including prednisone 40 mg p.o. q.d. if the patient's symptoms of weakness progress or if she has no significant improvement with physical therapy. 3. Consider repeating the CT of the abdomen if patient complains of any lower back pain or worse weakness in the leg. JAJA
--- NOTE | 2016-09-13 14:44 | Progress Note ---
Subjective: The patient was seen today in her room accompanied by her daughter. She states that she's feeling better than yesterday. Abdominal pain is improving and appetite is improving. She has some mild low back pain. She denies any pain in her legs. She states her strength in her left leg is getting a little bit better every day. She states she feels stronger when she tries to stand today compared to yesterday. Sensation is a little bit better today. Patient denies any shortness of breath, fevers or sweats. She is urinating well with her Vargas catheter out. She states if she goes too long without taking pain medications she develops more abdominal pain and starts shaking. Objective Vital signs: Temp Pulse Resp BP Pulse Ox 97.4 F 69 16 131/78 99 09/13/16 11:55 09/13/16 11:55 09/13/16 14:19 09/13/16 11:55 09/13/16 11:55 Weight: 52.5 kg Comments: GEN-alert, oriented, no acute distress HEENT-sclera anicteric, oropharynx is moist NECK-neck is supple CV-regular rate and rhythm, no murmur CHEST-clear to auscultation bilaterally ABD-bowel sounds are present, abdomen is link wire fabric machine tender to palpation -no catheter EXT-no edema NEURO-patient is able to sit up on the side of the bed without help. Extension at the knee and flexion at the hip on the left are both mildly improved today. Patellar reflex is minimal on the left. Strength in the feet is unchanged bilaterally. No weakness at all on the right leg SKIN-warm and dry and without rashes - Constitutional Present: no acute distress, well nourished, well developed, thin Results - Labs CBC & Chem 7: 09/13/16 07:47 09/13/16 07:47 Assessment and Plan (1) Diverticulitis of colon with perforation Current visit: Yes Status: Acute Assessment and Plan: 09/13/2016 Impression/plan Diverticulitis with colonic perforation-postop day #3-continue ertapenem. Patient is tolerating initiation of diet. Abdominal pain is slowly improving. Mild leukocytosis-resolved -no signs of sepsis, continue ertapenem Borderline hypotension-resolved Mild anemia-stable to slightly improved Intermittent chronic low back pain-previously diagnosed with sacroiliitis New-onset weakness left leg with decreased extension at the knee and flexion at the hip. 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 Dr. Leo did see the patient today and I discussed the patient with him and reviewed his consult note. We'll continue with current treatment for now. Physical therapy has been ordered. May need inpatient rehabilitation when medically stable. Per Dr. Leo, could repeat CT abdomen if symptoms should worsen or not improve. Could also add steroids if not continuing to improve. Sepsis Assessment - Evaluation Sepsis screening result: No Definite Risk - Focused Exam Vital Signs Temp Pulse Resp BP Pulse Ox 09/13/16 14:19 16 09/13/16 11:56 16 09/13/16 11:55 97.4 F 69 16 131/78 99 09/13/16 09:39 16 09/13/16 07:33 97.3 F 70 16 132/82 99 09/13/16 06:10 16 09/13/16 04:07 99.1 F 70 16 127/78 98 09/13/16 04:00 16 09/13/16 03:10 14 Respiratory exam: Present: CTA bilaterally Cardiovascular exam: Present: S1, S2 Capillary refill: < 2-3 Seconds Hospital Course Summary Disclaimer: The visit summary below is not to be considered part of the above Progress Note. Hospital Course: 09/11/2016 Impression/plan Diverticulitis with colonic perforation-postop day #1-continue antibiotics, postop care per Dr. Bowser Ileus-continue to monitor, NG tube Mild leukocytosis-no signs of sepsis, continue ertapenem Borderline hypotension-monitor closely, may need fluid resuscitation Intermittent chronic low back pain-sleep diagnosed with sacroiliitis New onset weakness left leg with decreased flexion at the hip and absent extension at the left knee. Absent reflex at the left knee. Decreased sensation left inner thigh and left calf. Discussed with Dr. Bowser and nurse web services developer. The patient did have general anesthesia. She was in the lithotomy position during surgery which could possibly affect the nurse. I also called and spoke with neurologist Dr. Boone Ewing. I discussed with him the patient's surgery last night and new onset of symptoms found today. He was concerned for possible retroperitoneal hematoma and recommended a CT abdomen and pelvis. If CT abdomen and pelvis did not show a cause for her neurologic symptoms he recommended an MRI of the lumbar spine. I discussed these recommendations with Dr. Bowser and he was in agreement. He recommended extending the CT down to the mid thigh to look at the iliac and femoral vessels. I did speak with the radiology department and they will make sure the CT extends to the mid thigh. Prior to discussing with consultants, I did talk with the patient's daughter who is a nurse, on the phone. I did also try to call the patient's and give him an update but there was no answer. I did leave a message requesting that he call back. Greater than 45 minutes of critical care time spent seeing and evaluating the patient, talking with consultants and determining care plan 09/12/2016 Impression/plan Diverticulitis with colonic perforation-postop day #2-continue antibiotics, postop care per Dr. Bowser. Agree with transfer to floor today Mild leukocytosis-resolved -no signs of sepsis, continue ertapenem Borderline hypotension-resolved Mild anemia Intermittent chronic low back pain-previously diagnosed with sacroiliitis New onset weakness left leg with decreased flexion at the hip and absent extension at the left knee. Absent reflex at the left knee. 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 Will likely need neurology follow-up and physical therapy. CT abdomen with contrast and MRI lumbar spine as above did not show any cause for her leg weakness and numbness. [facility] 09/13/16 14:45 09/13/16 14:47
--- NOTE | 2016-09-13 15:24 | Progress Note ---
DATE 09/13/2016 FINDINGS Mrs. Ortega is good spirits today. She states that she still has some weakness involving her left lower extremity but believes it has improved slightly. Has some incisional tenderness but states that it is improving. VITALS: Afebrile. Normotensive. Please refer electronic medical record.. CHEST: Clear to auscultation bilaterally. HEART: Regular rate and rhythm. Normal S1 and S2 without gallops, murmurs or clicks. ABDOMEN: Palpation of the abdomen reveals some minimal tenderness along her midline incision. There is no evidence for guarding or rebound. EXTREMITIES: Attention was focused to the left lower extremity. Patient still has decreased motor function in regards to extension of her knee. Plantarflexion and dorsiflexion remain strong. ASSESSMENT 51-year-old female status post exploratory laparotomy, sigmoid resection and coloproctostomy secondary to ruptured probable diverticulitis. Patient doing well from a surgical standpoint. Patient likely with a nerve traction injury involving her left lower extremity acquired from positioning. Nerve function appears to be slowly improving. PLAN Will continue with current care. If patient continues to tolerate full liquids without difficulty, will go ahead and advance to regular diet this evening or tomorrow. I am pleased with the patient's progress at this time. It is my intuition that this probable nerve traction injury will resolve on its own behalf over the next 4-6 weeks. We are already beginning to see some improvement. Did review MRI results which did not reveal any evidence for acute fracture, obvious cord or nerve root compression. GHANSHYAMD
[2016-09-14] MEDS: HYDROCODONE/APAP 5mg/325mg TABLET PO PRN ×2 (01:59→16:12)
[2016-09-14] MEDS: D5-1/2NS with KCL 20mEq 1,000 ML IV SCH ×4 (05:49→18:07)
[2016-09-14] MEDS: PANTOPRAZOLE 40 MG INJECTION IVP SCH (09:11)
[2016-09-14] MEDS: SALINE FLUSH 10ml SYRINGE IV PRN (09:11)
[2016-09-14] MEDS: ENOXAPARIN 40 MG/0.4 ML INJECTION SQ SCH (09:18)
[2016-09-14] MEDS: ERTAPENEM 1 G in NS 100 ML IV SCH (09:18)
[2016-09-14] MEDS: POLYETHYL GLYCOL 3350 17gm PACKET PO SCH (09:19)
--- NOTE | 2016-09-14 15:03 | Progress Note ---
DATE 09/14/2016 FINDINGS Nely was in good spirits this morning. She states that she believes that her left lower extremity continues to slowly improve in regards to its strength. Her incisional discomfort is becoming less. She has still been without flatus or BM. She denies significant nausea. Vitals: Afebrile. Normotensive. Please refer to EMR. Abdomen: Soft. Minimal incisional tenderness. Left lower extremity: Patient still continues to have some sensory loss/ numbness involving her medial thigh region. She continues to have some weakness with extension at the knee. ASSESSMENT A 51-year-old female status post exploratory laparotomy with sigmoid resection and coloproctostomy secondary to probable perforated diverticulitis. Patient likely with a nerve traction injury during the process of the positioning resulting in a component of some weakness to the left lower extremity which is improving. Overall patient doing well. PLAN Will go ahead and advance diet to a regular diet. Decrease IV fluids. Continue to follow closely. MTDD
[2016-09-14] MEDS ORDERED: BISACODYL E.C. 5 MG TABLET PO ONE (17:51)
[2016-09-14] MEDS: HYDROMORPHONE PCA 30mg/30ml VIAL IV PRN (19:16)
--- NOTE | 2016-09-14 20:42 | Progress Note ---
Subjective: The patient was seen this afternoon accompanied by her . She states that she thinks her leg weakness is getting better every day. Her appetite is a little better. Her abdominal pain is improving. She denies any chest pain or shortness of breath. She denies any lightheadedness. She has been walking in the halls with a walker and physical therapy. She is urinating without difficulties. Objective Vital signs: Temp Pulse Resp BP Pulse Ox 97.9 F 69 16 115/72 97 09/14/16 16:10 09/14/16 16:10 09/14/16 18:15 09/14/16 16:10 09/14/16 16:10 Weight: 53 kg Comments: GEN-alert, oriented, no acute distress CV-regular rate and rhythm CHEST-clear to auscultation bilaterally ABD-soft, mildly tender, hypoactive bowel sounds -no Vargas EXT-no edema NEURO-muscle strength with extension at the left knee and flexion at the left hip is better today. SKIN-warm and dry and without rashes - Constitutional Present: no acute distress, well nourished, well developed, thin Results - Labs CBC & Chem 7: 09/14/16 07:45 09/14/16 07:45 Assessment and Plan (1) Diverticulitis of colon with perforation Current visit: Yes Status: Acute Assessment and Plan: 09/14/2016 Impression/plan Diverticulitis with colonic perforation-postop day #4-continue ertapenem. Patient is tolerating advance diet. Mild leukocytosis-resolved -no signs of sepsis, continue ertapenem Borderline hypotension-resolved Mild anemia-resolved Intermittent chronic low back pain-previously diagnosed with sacroiliitis New-onset weakness left leg with decreased extension at the knee and flexion at the hip. 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 Dr. Leo did see the patient on 09/13/2016. Fortunately, the patient continues to gradually improve every day. We'll continue with current treatment for now. Continue with physical therapy. I did talk with case management and the family about an IRU screen. Per Dr. Leo, could repeat CT abdomen if symptoms should worsen or not improve. Could also add steroids if not continuing to improve. Sepsis Assessment - Evaluation Sepsis screening result: No Definite Risk - Focused Exam Vital Signs Temp Pulse Resp BP Pulse Ox 09/14/16 18:15 16 09/14/16 16:14 16 09/14/16 16:10 97.9 F 69 16 115/72 97 09/14/16 16:00 97.9 F 76 14 118/67 98 09/14/16 14:50 16 09/14/16 12:52 16 09/14/16 12:00 99.2 F 67 16 143/92 H 100 09/14/16 10:14 16 Respiratory exam: Present: CTA bilaterally Cardiovascular exam: Present: S1, S2 Capillary refill: < 2-3 Seconds Hospital Course Summary Disclaimer: The visit summary below is not to be considered part of the above Progress Note. Hospital Course: 09/11/2016 Impression/plan Diverticulitis with colonic perforation-postop day #1-continue antibiotics, postop care per Dr. Bowser Ileus-continue to monitor, NG tube Mild leukocytosis-no signs of sepsis, continue ertapenem Borderline hypotension-monitor closely, may need fluid resuscitation Intermittent chronic low back pain-sleep diagnosed with sacroiliitis New onset weakness left leg with decreased flexion at the hip and absent extension at the left knee. Absent reflex at the left knee. Decreased sensation left inner thigh and left calf. Discussed with Dr. Bowser and nurse optical manufacturing technician. The patient did have general anesthesia. She was in the lithotomy position during surgery which could possibly affect the nurse. I also called and spoke with neurologist Dr. Boone Ewing. I discussed with him the patient's surgery last night and new onset of symptoms found today. He was concerned for possible retroperitoneal hematoma and recommended a CT abdomen and pelvis. If CT abdomen and pelvis did not show a cause for her neurologic symptoms he recommended an MRI of the lumbar spine. I discussed these recommendations with Dr. Bowser and he was in agreement. He recommended extending the CT down to the mid thigh to look at the iliac and femoral vessels. I did speak with the radiology department and they will make sure the CT extends to the mid thigh. Prior to discussing with consultants, I did talk with the patient's daughter who is a nurse, on the phone. I did also try to call the patient's and give him an update but there was no answer. I did leave a message requesting that he call back. Greater than 45 minutes of critical care time spent seeing and evaluating the patient, talking with consultants and determining care plan 09/12/2016 Impression/plan Diverticulitis with colonic perforation-postop day #2-continue antibiotics, postop care per Dr. Bowser. Agree with transfer to floor today Mild leukocytosis-resolved -no signs of sepsis, continue ertapenem Borderline hypotension-resolved Mild anemia Intermittent chronic low back pain-previously diagnosed with sacroiliitis New onset weakness left leg with decreased flexion at the hip and absent extension at the left knee. Absent reflex at the left knee. 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 Will likely need neurology follow-up and physical therapy. CT abdomen with contrast and MRI lumbar spine as above did not show any cause for her leg weakness and numbness. Agree with transfer to floor, HARISH Vargas. 09/13/2016 Impression/plan Diverticulitis with colonic perforation-postop day #3-continue ertapenem. Patient is tolerating initiation of diet. Abdominal pain is slowly improving. Mild leukocytosis-resolved -no signs of sepsis, continue ertapenem Borderline hypotension-resolved Mild anemia-stable to slightly improved Intermittent chronic low back pain-previously diagnosed with sacroiliitis New-onset weakness left leg with decreased extension at the knee and flexion at the hip. 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 Dr. Leo did see the patient today and I discussed the patient with him and reviewed his consult note. We'll continue with current treatment for now. Physical therapy has been ordered. May need inpatient rehabilitation when medically stable. Per Dr. Leo, could repeat CT abdomen if symptoms should worsen or not improve. Could also add steroids if not continuing to improve. 09/14/16 20:39
[2016-09-15] MEDS: HYDROCODONE/APAP 5mg/325mg TABLET PO PRN ×4 (00:42→21:00)
[2016-09-15] MEDS: D5-1/2NS with KCL 20mEq 1,000 ML IV SCH ×2 (00:52→11:59)
[2016-09-15] MEDS ORDERED: SALINE FLUSH 10ml SYRINGE IVF PRN (08:40)
[2016-09-15] MEDS: ERTAPENEM 1 G in NS 100 ML IV SCH (09:49)
[2016-09-15] MEDS: POLYETHYL GLYCOL 3350 17gm PACKET PO SCH (09:50)
[2016-09-15] MEDS: PANTOPRAZOLE 40 MG INJECTION IVP SCH (09:50)
[2016-09-15] MEDS: ENOXAPARIN 40 MG/0.4 ML INJECTION SQ SCH (09:50)
--- NOTE | 2016-09-15 15:05 | Progress Note ---
DATE 09/15/2016 FINDINGS Nely was in good spirits today. She is passing flatus. Has been tolerating a regular diet. OBJECTIVE VITALS: Afebrile. Normotensive. Please refer to EMR. ABDOMEN: Soft. Minimal incisional tenderness. EXTREMITIES: Attention was focused to left lower extremity. Her motor function is significantly improved. She is now able to extend her lower extremity at the knee without difficulty. She still has some sensory deprivation involving the medial aspect of her thigh and knee region. Overall, however, there has been marked improvement. LABORATORY/RADIOGRAPH EVALUATION BMP was obtained today and found to be within normal limits. . ASSESSMENT 51-year-old female status post sigmoid resection with coloproctostomy secondary to probable perforated sigmoid diverticulitis. Patient doing quite well. PLAN Will go ahead and hep lock IV fluids today. If the patient does have bowel movement later today, will likely discharge home this evening. I'm pleased with the patient's progress at this time. MTDD
--- NOTE | 2016-09-15 19:08 | Progress Note ---
Subjective: Patient states she is gradually feeling better day by day. Appetite has improved. Pain control is better and she is not needing much IV pain medication. She denies any shortness of breath. She did not have a bowel movement at the time that I saw her earlier today. She was urinating well. She stated that her left leg strength was improving every day. She was evaluated by inpatient rehabilitation and was doing "too good" to qualify for rehabilitation. Objective Vital signs: Temp Pulse Resp BP Pulse Ox 97.6 F 70 16 116/73 99 09/15/16 16:00 09/15/16 16:00 09/15/16 16:00 09/15/16 16:00 09/15/16 16:00 Weight: 51.7 kg Comments: GEN-alert, oriented, no acute distress CV-regular rate and rhythm CHEST-clear to auscultation bilaterally ABD-soft, mildly tender, positive bowel sounds -no Vargas EXT-no edema NEURO-leg strength on the left with extension at the knee and flexion at the hip continue to improve. There is still minimal deep tendon reflex at the knee. SKIN-arm and dry and without rashes - Constitutional Present: no acute distress, well nourished, well developed, thin Results - Labs CBC & Chem 7: 09/14/16 07:45 09/15/16 04:29 Assessment and Plan (1) Diverticulitis of colon with perforation Current visit: Yes Status: Acute Assessment and Plan: 09/15/2016 Impression/plan Diverticulitis with colonic perforation-postop day #5-continue ertapenem. Patient is tolerating advance diet. Mild leukocytosis-resolved -no signs of sepsis, continue ertapenem Borderline hypotension-resolved Mild anemia-resolved Intermittent chronic low back pain-previously diagnosed with sacroiliitis New-onset weakness left leg with decreased extension at the knee and flexion at the hip. 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 The patient continues to improve daily. Continue PT and OT.\\ Plan is for home tomorrow with either outpatient PT or home with home health. Discussed today with Dr. Bowser. He stated patient could go home from his standpoint after she had a bowel movement and when pain was controlled without IV narcotics. Sepsis Assessment - Evaluation Sepsis screening result: No Definite Risk - Focused Exam Vital Signs Temp Pulse Resp BP Pulse Ox 06/14/17 16:00 97.6 F 70 16 116/73 99 09/15/16 12:00 97.7 F 69 16 113/72 99 09/15/16 08:00 97.8 F 62 16 116/75 95 Respiratory exam: Present: CTA bilaterally Cardiovascular exam: Present: S1, S2 Capillary refill: < 2-3 Seconds Hospital Course Summary Disclaimer: The visit summary below is not to be considered part of the above Progress Note. Hospital Course: 09/11/2016 Impression/plan Diverticulitis with colonic perforation-postop day #1-continue antibiotics, postop care per Dr. Bowser Ileus-continue to monitor, NG tube Mild leukocytosis-no signs of sepsis, continue ertapenem Borderline hypotension-monitor closely, may need fluid resuscitation Intermittent chronic low back pain-sleep diagnosed with sacroiliitis New onset weakness left leg with decreased flexion at the hip and absent extension at the left knee. Absent reflex at the left knee. Decreased sensation left inner thigh and left calf. Discussed with Dr. Bowser and nurse food expeditor. The patient did have general anesthesia. She was in the lithotomy position during surgery which could possibly affect the nurse. I also called and spoke with neurologist Dr. Boone Ewing. I discussed with him the patient's surgery last night and new onset of symptoms found today. He was concerned for possible retroperitoneal hematoma and recommended a CT abdomen and pelvis. If CT abdomen and pelvis did not show a cause for her neurologic symptoms he recommended an MRI of the lumbar spine. I discussed these recommendations with Dr. Bowser and he was in agreement. He recommended extending the CT down to the mid thigh to look at the iliac and femoral vessels. I did speak with the radiology department and they will make sure the CT extends to the mid thigh. Prior to discussing with consultants, I did talk with the patient's daughter who is a nurse, on the phone. I did also try to call the patient's and give him an update but there was no answer. I did leave a message requesting that he call back. Greater than 45 minutes of critical care time spent seeing and evaluating the patient, talking with consultants and determining care plan 09/12/2016 Impression/plan Diverticulitis with colonic perforation-postop day #2-continue antibiotics, postop care per Dr. Bowser. Agree with transfer to floor today Mild leukocytosis-resolved -no signs of sepsis, continue ertapenem Borderline hypotension-resolved Mild anemia Intermittent chronic low back pain-previously diagnosed with sacroiliitis New onset weakness left leg with decreased flexion at the hip and absent extension at the left knee. Absent reflex at the left knee. 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 Will likely need neurology follow-up and physical therapy. CT abdomen with contrast and MRI lumbar spine as above did not show any cause for her leg weakness and numbness. [facility] Impression/plan Diverticulitis with colonic perforation-postop day #3-continue ertapenem. Patient is tolerating initiation of diet. Abdominal pain is slowly improving. Mild leukocytosis-resolved -no signs of sepsis, continue ertapenem Borderline hypotension-resolved Mild anemia-stable to slightly improved Intermittent chronic low back pain-previously diagnosed with sacroiliitis New-onset weakness left leg with decreased extension at the knee and flexion at the hip. 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 Dr. Leo did see the patient today and I discussed the patient with him and reviewed his consult note. We'll continue with current treatment for now. Physical therapy has been ordered. May need inpatient rehabilitation when medically stable. Per Dr. Leo, could repeat CT abdomen if symptoms should worsen or not improve. Could also add steroids if not continuing to improve. 09/14/2016 Impression/plan Diverticulitis with colonic perforation-postop day #4-continue ertapenem. Patient is tolerating advance diet. Mild leukocytosis-resolved -no signs of sepsis, continue ertapenem Borderline hypotension-resolved Mild anemia-resolved Intermittent chronic low back pain-previously diagnosed with sacroiliitis New-onset weakness left leg with decreased extension at the knee and flexion at the hip. 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 Dr. Leo did see the patient on 09/13/2016. Fortunately, the patient continues to gradually improve every day. We'll continue with current treatment for now. Continue with physical therapy. I did talk with case management and the family about an IRU screen. Per Dr. Leo, could repeat CT abdomen if symptoms should worsen or not improve. Could also add steroids if not continuing to improve.09/14/16 20:39
[2016-09-16] MEDS: HYDROCODONE/APAP 5mg/325mg TABLET PO PRN ×3 (02:44→12:27)
[2016-09-16] MEDS ORDERED: SALINE FLUSH *Sterile* 10 ML SYRINGE IV PRN (06:02)
[2016-09-16] MEDS: SALINE FLUSH 10ml SYRINGE IV PRN ×2 (06:04→08:41)
[2016-09-16] MEDS ORDERED: NS FLUSH BAG 500ml IV PRN (08:35)
[2016-09-16] MEDS: POLYETHYL GLYCOL 3350 17gm PACKET PO SCH (08:41)
[2016-09-16] MEDS: ENOXAPARIN 40 MG/0.4 ML INJECTION SQ SCH (08:42)
[2016-09-16] MEDS: ERTAPENEM 1 G in NS 100 ML IV SCH (08:57)
[2016-09-16] MEDS: PANTOPRAZOLE 40 MG INJECTION IVP SCH (08:58)
[2016-09-16] MEDS ORDERED: PANTOPRAZOLE 40 MG TABLET PO SCH (09:00)
--- NOTE | 2016-09-16 09:28 | Discharge Summary ---
Discharge Plan - Med Rec/Dispo Referrals/Follow Up: Mynor Bowser MD [Physician] - 09/23/16 3:30 pm José Miguel Instructions: Diverticulitis (DC), Diverticulitis Diet (GEN), Perforated Bowel (DC) Additional Instructions: OUT PATIENT PHYSICAL THERAPY AT [facility], 1928–1983. Prescriptions: New Hydrocodone/APAP 5/325 [[place] 5/325] 1 - 2 tab PO Q5H PRN #30 PRN Reason: Pain PEG 3350 17gm PACKET [Miralax] 17 gm PO DAILY PRN #15 packet PRN Reason: Constipation Continue Ibuprofen 800 mg PO Q8H PRN #30 tab PRN Reason: PAIN No Action Multivit with Calcium,Iron,Min (Women's One Daily) 27 mg PO DAILY PRN #0 PRN Reason: SUPPLEMENT Hydrocodone/Acetaminophen [Hydrocodon-Acetaminophen 5-325] 1 - 2 tab PO Q4H PRN #20 tab PRN Reason: PAIN [place]-3/Dha/Epa/Fish Oil [Fish Oil 1,000 mg Softgel] 1,000 mg PO DAILY Ferrous Sulfate 1 tab PO DAILY PRN #0 tab PRN Reason: ANEMIA Multi-Vitamin Plain [Theragran] 1 tab PO DAILY Outpatient Orders: PT Gene Develop/Implement Plan Location: Determined By Patient - Disposition 01 Discharged Home, Self-Care
--- NOTE | 2016-09-16 09:38 | General Surgery Progress Note ---
Subjective Patient reports: no new complaints, tolerating a regular diet (Left leg weakness gradually improvint. has a walker for her at home. Case management is making arrangements for PT at [facility] to continue outpatient therapy.), bowel movement - Vital Signs Last Vital Signs Temp 96.9 F 09/16/16 08:00 Pulse 58 L 09/16/16 08:00 Resp 12 09/16/16 08:00 BP 129/78 09/16/16 08:00 Pulse Ox 98 09/16/16 08:00 - Laboratory Result Diagrams: 09/14/16 07:45 09/15/16 04:29 - Pathology Pending - Normal Exam General: awake, alert, oriented, resting, awakens easily, no acute distress Respiratory: no labored breathing Abdominal: soft, appropriately tender (midline incision) Assessment and Plan (1) Diverticulitis of colon with perforation Current Visit: Yes Status: Resolved Qualifiers: Diverticulitis bleeding: without bleeding Qualified Code(s): K57.20 - Diverticulitis of large intestine with perforation and abscess without bleeding Plan: From surgical standpoint she is ready for discharge, haveing BM's eating regular diet. Discharge activity discussed and questions answererd. May shower. No additional ABX needed, she had about a week of Invanz. Rx for [place] written. Rx for outpatient PT written F/U September 22 at 3:30 with Niels for post op visit and staple removal. Hospital Course Summary Disclaimer: The visit summary below is not to be considered part of the above Progress Note. Hospital Course: 09/11/2016 Impression/plan Diverticulitis with colonic perforation-postop day #1-continue antibiotics, postop care per Dr. Bowser Ileus-continue to monitor, NG tube Mild leukocytosis-no signs of sepsis, continue ertapenem Borderline hypotension-monitor closely, may need fluid resuscitation Intermittent chronic low back pain-sleep diagnosed with sacroiliitis New onset weakness left leg with decreased flexion at the hip and absent extension at the left knee. Absent reflex at the left knee. Decreased sensation left inner thigh and left calf. Discussed with Dr. Bowser and nurse frame catcher. The patient did have general anesthesia. She was in the lithotomy position during surgery which could possibly affect the nurse. I also called and spoke with neurologist Dr. Boone Ewing. I discussed with him the patient's surgery last night and new onset of symptoms found today. He was concerned for possible retroperitoneal hematoma and recommended a CT abdomen and pelvis. If CT abdomen and pelvis did not show a cause for her neurologic symptoms he recommended an MRI of the lumbar spine. I discussed these recommendations with Dr. Bowser and he was in agreement. He recommended extending the CT down to the mid thigh to look at the iliac and femoral vessels. I did speak with the radiology department and they will make sure the CT extends to the mid thigh. Prior to discussing with consultants, I did talk with the patient's daughter who is a nurse, on the phone. I did also try to call the patient's and give him an update but there was no answer. I did leave a message requesting that he call back. Greater than 45 minutes of critical care time spent seeing and evaluating the patient, talking with consultants and determining care plan 09/12/2016 Impression/plan Diverticulitis with colonic perforation-postop day #2-continue antibiotics, postop care per Dr. Bowser. Agree with transfer to floor today Mild leukocytosis-resolved -no signs of sepsis, continue ertapenem Borderline hypotension-resolved Mild anemia Intermittent chronic low back pain-previously diagnosed with sacroiliitis New onset weakness left leg with decreased flexion at the hip and absent extension at the left knee. Absent reflex at the left knee. 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 Will likely need neurology follow-up and physical therapy. CT abdomen with contrast and MRI lumbar spine as above did not show any cause for her leg weakness and numbness. Agree with transfer to [place] [place] [facility]. 09/13/2016 Impression/plan Diverticulitis with colonic perforation-postop day #3-continue ertapenem. Patient is tolerating initiation of diet. Abdominal pain is slowly improving. Mild leukocytosis-resolved -no signs of sepsis, continue ertapenem Borderline hypotension-resolved Mild anemia-stable to slightly improved Intermittent chronic low back pain-previously diagnosed with sacroiliitis New-onset weakness left leg with decreased extension at the knee and flexion at the hip. 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 Dr. Leo did see the patient today and I discussed the patient with him and reviewed his consult note. We'll continue with current treatment for now. Physical therapy has been ordered. May need inpatient rehabilitation when medically stable. Per Dr. Leo, could repeat CT abdomen if symptoms should worsen or not improve. Could also add steroids if not continuing to improve. 09/14/2016 Impression/plan Diverticulitis with colonic perforation-postop day #4-continue ertapenem. Patient is tolerating advance diet. Mild leukocytosis-resolved -no signs of sepsis, continue ertapenem Borderline hypotension-resolved Mild anemia-resolved Intermittent chronic low back pain-previously diagnosed with sacroiliitis New-onset weakness left leg with decreased extension at the knee and flexion at the hip. 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 Dr. Leo did see the patient on 09/13/2016. Fortunately, the patient continues to gradually improve every day. We'll continue with current treatment for now. Continue with physical therapy. I did talk with case management and the family about an IRU screen. Per Dr. Leo, could repeat CT abdomen if symptoms should worsen or not improve. Could also add steroids if not continuing to improve.09/14/16 20:39 09/16/16 09:42 From surgical standpoint she is ready for discharge, haveing BM's eating regular diet. Discharge activity discussed and questions answererd. May shower. No additional ABX needed, she had about a week of Invanz. Rx for [place] written. Rx for outpatient PT written F/U September 22 at 3:30 with Niels for post op visit and staple removal. Sepsis Assessment - Evaluation Sepsis screening result: No Definite Risk - Focused Exam Vital Signs Temp Pulse Resp BP Pulse Ox 09/16/16 08:00 96.9 F 58 L 12 129/78 98 09/16/16 03:36 97.3 F 66 16 121/67 99 09/15/16 23:17 98.0 F 62 16 116/71 98 Respiratory exam: Present: CTA bilaterally Cardiovascular exam: Present: S1, S2 Capillary refill: < 2-3 Seconds
--- NOTE | 2016-09-16 13:23 | Discharge Summary ---
<Josefina Crespo Mitchell - Last Filed: 09/16/16 11:42> Discharge Information Date of admission: 09/10/16 13:35 Attending Physician: Balbina Santos MD Consults: 09/10/16 14:59 Physician Consult [CONS] Routine Consulting Provider: Mynor Bowser Reason For Exam: diverticulitis with perforation Ordering Provider has Notified Swine Genetics Researcher: Yes 09/13/16 08:00 Physician Consult [CONS] Routine Consulting Provider: Keya Leo Reason For Exam: new onset left leg weakness Ordering Provider has Notified Swine Genetics Researcher: Yes 09/14/16 IRU Screening [Inpatient Rehab Screening] [CONS] Routine Screen requested by:: Physician Comment Text:: PLEASE SCREEN FOR IRU - Discharge Diagnosis (1) Diverticulitis of colon with perforation Qualifiers: Diverticulitis bleeding: without bleeding Qualified Code(s): K57.20 - Diverticulitis of large intestine with perforation and abscess without bleeding Status: Resolved (2) Left leg weakness 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 - Laboratory Labs: 09/14/16 07:45 09/15/16 04:29 - Radiology Radiology: 09/11/16 CT abdomen pelvis w contrast Findings: The lung bases show trace effusions. Interval change in configuration of free intraperitoneal air. New periportal edema, likely related to aggressive intravenous hydration. Right hepatic cysts. Vicarious excretion of contrast by the gallbladder. Nasogastric tube extending into the pylorus of the stomach. The spleen is unremarkable. The pancreas is grossly normal. The adrenal glands and kidneys are within normal limits. No abdominal or pelvic adenopathy. Bladder is decompressed with a Vargas catheter. There is contrast material to the level of the rectum. There is presacral induration with fluid and gas. The prior large focal. Colonic collection of fluid and gas near the sigmoid is no longer seen. There is free air tracking around well left paracolic gutter. Small bowel is nondilated. Postoperative change in the sigmoid colon. No obvious free intraperitoneal or retroperitoneal hemorrhage appreciated. Impression: Interval surgery with change in configuration of free intraperitoneal air. No evidence of acute obstruction or contrast extravasation from the colon. No obvious free intraperitoneal or retroperitoneal hemorrhage. MR lumbar spine wo contrast Findings: No cord compression. Mild scoliosis. No acute fracture identified. No gross central canal or neural foraminal stenosis. Small disk extrusion at L4- L5. Mild disk bulging at L2-L3 and L3-L4. Motion artifact limits the quality of the exam. Impression: No acute fracture. No obvious cord or nerve root compression. - Pathology Colon, sigmoid surgical specimen pathology pending at time of discharge History of Present Illness HPI: Nely Ortega is a healthy 51 y/o lady who is directly admitted to [facility] [place]. Varghese's office for surgical consultation and further evaluation of diverticulitis with perforation. She has chronic back pain, and developed a flare up of pain 1 week ago. She saw the chiropracter on Tuesday, which didn't provide relief. She saw her PCP on Tuesday, who ordered a back x-ray which was negative. By this time, her pain radiated towards her LLQ, and she felt like it was less likely to be musculoskeletal in origin. It was the worst on night, feeling intense pressure and like it was going to explode. She had a follow up appt with Dr. Varghese this morning, who ordered labs and a CT scan. Labs were benign with a nml WBC (9.0) and neg UA but CT showed free intraperitoneal air and a bowel perforation secondary to acute diverticulitis. (CMP: Na 142, BUN 18, Cr 0.91, Glu 111) Last night she had night sweats and chills; no n/v. The only time she had diarrhea was after oral contrast. She's had a poor appetite all week. She had a headache last night but that is better now. She feels weak, fatigued. No dizziness/lightheadedness. No respiratory issues. Otherwise very healthy. She had a colonoscopy in May by Dr. Victoria. Hospital Course Hospital course: Mrs. Ortega was admitted on 09/10/16 for colonic perforation. She was made NPO, started on Invanz daily, and Dr. Bowser was consulted. She went to the OR suite on 09/10/16 for exploratory laparotomy, sigmoid resection, and coloproctostomy. On POD #1, she had a mild postop ileus and NG tube was continued. However, she also developed significant new weakness of the left leg with with decreased flexion at the hip and absent extension at the left knee, and absent left patellar reflex. Neurologist Dr. Boone Ewing was consulted via phone and jesu concern for retroperitoneal hematoma and recommended a CT abdomen and pelvis, which was negative. An MRI of her lumbar spine was also obtained, also negative for acute pathology that would explain her leg weakness/ numbness. Most likely, this was a femoral neuropathy. Ultimately, our in-house neurologist Dr. Leo was able to evaluate the patient personally, and concurred with treatment plans, and considered steroids if there was a lack of improvement. PT/OT were consulted, and over the following several, days her symptoms improved but her strength never fully returned. By POD #2, her Vargas and NG tube were able to be discontinued and she was transferred to the floor. She was able to ambulate safely with a walker and felt safe going home with a Rx for outpatient therapy (which she plans to do in [place]). Postop labs remained stable - mild leukocytosis resolved. Her diet was advanced and by day of discharge she was tolerating a regular diet and was having bowel movements. The surgical team provided Rx for [place] (side effects including constipation were discussed and pt plans on taking MiraLAX at home); and PT/OT evaluation. She completed a week long course of Invanz so no further antibiotics were necessary at time of discharge. Regarding wound care, it's ok to shower. Recommend outpatient therapy and neurologic f/u for femoral neuropathy. F/U appt has been set on 09/22 at 3:[address] Bowser for staple removal. On date of discharge, she was A&O x3. Her lungs were clear, heart was regular. Abdominal incision was healing well and madina were intact. She had positive bowel sounds. Extremities were free of edema. She had decreased motor function of her left leg compared to her right but per patient this continues to improve. Discharge questions were answered, and the patient was dismissed home with her Armando in stable condition. This is a general summation of the patient's hospital course. For more details, please refer to the entire medical record. Time spent in discharge: 45 min. Discharge Plan - Med Rec/Dispo Referrals/Follow Up: Mynor Bowser MD [Physician] - 09/23/16 3:30 pm [place] Instructions: Diverticulitis (DC), Diverticulitis Diet (GEN), Perforated Bowel (DC) Additional Instructions: OUT PATIENT PHYSICAL THERAPY AT [facility] SEPTEMBER 20 AT 1:15 PM. CHECK IN AT 1:00 PM. Prescriptions: New Hydrocodone/APAP 5/325 [[place] 5/325] 1 - 2 tab PO Q5H PRN #30 PRN Reason: Pain PEG 3350 17gm PACKET [Miralax] 17 gm PO DAILY PRN #15 packet PRN Reason: Constipation Continue Multivit with Calcium,Iron,Min (Women's One Daily) 27 mg PO DAILY PRN #0 PRN Reason: SUPPLEMENT Ibuprofen 800 mg PO Q8H PRN #30 tab PRN Reason: PAIN [place]-3/Dha/Epa/Fish Oil [Fish Oil 1,000 mg Softgel] 1,000 mg PO DAILY Ferrous Sulfate 1 tab PO DAILY PRN #0 tab PRN Reason: ANEMIA Multi-Vitamin Plain [Theragran] 1 tab PO DAILY No Action Hydrocodone/Acetaminophen [Hydrocodon-Acetaminophen 5-325] 1 - 2 tab PO Q4H PRN #20 tab PRN Reason: PAIN Outpatient Orders: PT Eval Develop/Implement Plan Location: Determined By Patient - Disposition 01 Discharged Home, Self-Care <Paul Thompson - Last Filed: 09/16/16 20:07> Discharge Information Date of admission: 09/10/16 13:35 Attending Physician: Balbina Santos MD Consults: 09/10/16 14:59 Physician Consult [CONS] Routine Consulting Provider: Mynor Bowser Reason For Exam: diverticulitis with perforation Ordering Provider has Notified Swine Genetics Researcher: Yes 09/13/16 08:00 Physician Consult [CONS] Routine Consulting Provider: Keya Leo Reason For Exam: new onset left leg weakness Ordering Provider has Notified Swine Genetics Researcher: Yes 09/14/16 IRU Screening [Inpatient Rehab Screening] [CONS] Routine Screen requested by:: Physician Comment Text:: PLEASE SCREEN FOR IRU - Discharge Diagnosis (1) Diverticulitis of colon with perforation Qualifiers: Diverticulitis bleeding: without bleeding Qualified Code(s): K57.20 - Diverticulitis of large intestine with perforation and abscess without bleeding Status: Resolved (2) Left leg weakness 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 Ortega is a 51 year old female Discharge Plan - Med Rec/Dispo - Attestation Attestation Narrative: 09/16/16 20:02 Have independently interviewed and examined pt. Chart reviewed. Case discussed with my TAX MANAGER. Care plan developed with my supervision; agree with above. Doing very well. Minimal incisional pain. Eating well without nausea. Stools moving. Leg strength and movement ability improving. Breathing well. Lungs: clear CV: regular AB: soft nt/nd +BS. Incision clean and dry. No drainage. Stables in place MSE: awake alert appropriate Plan: Medically stable for discharge to home. Outpatient PT to help improve leg weakness. Encourage IS/deep breathing activities. Miralax as needed to help bowel function. See orders for details. Time spent with patient care and discharge greater than 35 minutes.
== END 2016-09-16 12:30 | disposition home or self-care (01) | DRG 330 ==
LOC: SRG → MERGE 13:35 → OBSVTOIN 13:35 → CCU 19:41 → SRG 09-12 13:30
PROVIDERS: ADMIT Internal Medicine; ATTEND Internal Medicine